=== PATIENT | female | born 1995 | race Caucasian/White ===

== ENCOUNTER 2019-07-27 21:15 | Emergency (ER) | payer SELFPAY ==
[2019-07-27] MEDS ORDERED: TETANUS & DIPHTHERIA TOX,ADULT 0.5 ML VIAL ONE (21:41)
[2019-07-27 22:50] LABS: Absolute Lymphocytes (CBC) 1.3 K/uL (0.7-4.9); Basophils % 0.3 % (0-1.3); Hematocrit 34.1 % (36.0-45.0); Lymphocytes % 11.4 % (15.3-44.8); MPV 8.3 fL (7.6-11.3); RBC Red Blood Cell Count 3.77 M/uL (3.86-4.86)
[2019-07-27] MEDS ORDERED: ONDANSETRON 4 MG/2 ML VIAL ONE (22:51)
[2019-07-27 23:00] LABS: Albumin 3.7 g/dL (3.4-5.0); Bilirubin Total 0.6 mg/dL (0.2-1.0); Potassium 3.2 mmol/L (3.5-5.1); Protein, Total 7.1 g/dL (6.4-8.2)
[2019-07-27] MEDS ORDERED: PANTOPRAZOLE 40 MG INJ ONE (23:23)
[2019-07-27 23:55] LABS: Urine Blood TRACE (NEG); Urine Glucose NEGATIVE (NEG); Urine Protein 2+ (NEG); Urine Specific Gravity 1.015 (1.005-1.030)
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
[2019-07-28 01:34] VITALS: TEMP 98.7
[2019-07-28 01:35] VITALS: BP 108/66; O2SAT 99
--- NOTE | 2019-07-29 15:17 | RAD REPORT ---
EXAM DESCRIPTION: RAD - Knee Left 3 View - 07/28/2019 7:05 pm CLINICAL HISTORY: Left knee pain status post injury FINDINGS: No fracture or dislocation is seen.
--- NOTE | 2019-07-29 15:17 | RAD REPORT ---
EXAM DESCRIPTION: RAD - Elbow Left 2 View - 07/28/2019 7:05 pm CLINICAL HISTORY: Left elbow pain FINDINGS: No fracture or dislocation is seen Limited two view series
--- NOTE | 2019-07-29 15:17 | RAD REPORT ---
EXAM DESCRIPTION: RAD - Elbow Right 2 View - 07/28/2019 7:05 pm CLINICAL HISTORY: Right elbow pain FINDINGS: No fracture or dislocation is seen. Limited two-view series
--- NOTE | 2019-07-29 15:18 | RAD REPORT ---
EXAM DESCRIPTION: RAD - Knee Right 3 View - 07/29/2019 8:39 am CLINICAL HISTORY: Right knee pain status post injury FINDINGS: No fracture or dislocation is seen.
--- NOTE | 2019-07-31 17:29 | RAD REPORT ---
EXAM DESCRIPTION: CT HEAD CSPINE CAP W/CONTRAST CLINICAL HISTORY: Head, neck, chest and abdomen pain. COMPARISON: None. TECHNIQUE: Axial 5 mm thick images of the head were obtained without contrast. Axial 2 mm thick images of the cervical spine were obtained. Sagittal and coronal reformatted images were generated for the head and cervical spine. Following non-ionic IV contrast, axial 5 mm thick images of the chest, abdomen and pelvis were obtained. Biphasic technique was utilized to the abdomen. Sagittal and coronal spine reconstruction images generated and reviewed. This exam was performed according to our departmental dose-optimization program, which includes automated exposure control, adjustment of the mA and/or kV according to patient size and/or use of iterative reconstruction technique. FINDINGS: No intracranial hemorrhage is present. No mass, edema or shift of midline structures. The ventricles are normal. A right parietal shunt tube is in place. The tip is in the right lateral ventricle frontal horn. Physiologic calcifications are present. Mastoid air cells are clear. Patchy mucosal thickening in the paranasal sinuses. No fracture or acute bone finding. Cervical spine imaging shows vertebral bodies to be normal in height. No subluxation abnormality. Minimal kyphosis is believed to be positioning artifact or possibly muscle spasm. Central canal detail is inherently limited. No cervical fracture is identified. No disc space narrowing. There is no paraspinal mass identified. CT chest imaging show no pneumothorax, pulmonary contusion or acute lung process. The aorta and pulmonary arterial tree enhance normally. No pericardial thickening or effusion. The lungs are clear. No pneumothorax or pleural effusion. No displaced rib fracture or acute bone process. The liver, spleen, pancreas, gallbladder, biliary tree, kidneys and adrenal glands show no suspicious findings. No acute bowel injury. No free air or pneumatosis. Shunt tube is curled along the pelvic floor. A small amount of free fluid is present, not unexpected. No hematoma, hernia, mass or abnormal lymphadenopathy. The uterus and ovaries show no suspicious findings. No acute bone finding. IMPRESSION: 1. CT head imaging shows no mass, hemorrhage, edema or acute intracranial finding. Parietal shunt tube is in place well positioned. 2. CT cervical spine imaging shows no fracture or acute finding. 3. CT chest imaging shows no traumatic injury or acute finding. 4. CT abdomen and pelvis imaging shows no acute injury.
== END 2019-07-28 00:26 | disposition home or self-care (01) ==
LOC: ER 21:15
DX: S06.9X9A Unspecified intracranial injury with loss of consciousness of unspecified duration, initial encounter (principal); S50.312A Abrasion of left elbow, initial encounter; S50.311A Abrasion of right elbow, initial encounter; S80.212A Abrasion, left knee, initial encounter; S80.211A Abrasion, right knee, initial encounter; V89.0XXA Person injured in unspecified motor-vehicle accident, nontraffic, initial encounter; M25.522 Pain in left elbow; M25.521 Pain in right elbow; M25.562 Pain in left knee; M25.561 Pain in right knee; Z91.040 Latex allergy status; Z91.048 Other nonmedicinal substance allergy status; Z23 Encounter for immunization
CPT/HCPCS: 36415; 70450; 71260; 72125; 74177; 80053; 80320; 81003; 81025; 85025; 86850; 86900; 86901; 90471; 90714; 96374; 96375; 99284; C9113; J2405; Q9967